=== PATIENT | female | born 1965 | race Caucasian/White ===

== ENCOUNTER 2017-06-27 10:24 | Emergency (ER) ==
[2017-06-27 10:30] VITALS: BP 131/84; TEMP 98.3; BMI 22.6
[2017-06-27 10:53] LABS: BILIRUBIN,URINE Negative (NEGATIVE); KETONES,URINE Negative (NEGATIVE); LEUKOCYTE ESTERASE ,URINE Negative (NEGATIVE); NITRITE,URINE Negative (NEGATIVE); PH,URINE 5.5 (5-9); PROTEIN,URINE Negative (NEGATIVE); URINE, BLOOD 2+ (NEGATIVE)
[2017-06-27 10:55] LABS: ADD URINE MICROSCOPIC YES
[2017-06-27 11:05] LABS: BACTERIA,URINE 2+ (NOT PRESENT)
[2017-06-27 11:06] LABS: COCAIN SCREEN,URINE NEGATIVE (NEGATIVE)
--- NOTE | 2017-06-27 11:29 | CT ---
EXAM: CT of the abdomen pelvis without contrast History: Lower back pain and abdominal pain. Comparison: CT lumbar spine 06/27/2017 Technique: Multiplanar CT images through the abdomen pelvis were obtained without the administration of IV contrast Findings: Lung bases are free of consolidation. No acute osseous abnormalities. Degenerative luna es of the lumbar spine. No renal stones and no hydronephrosis. The appendix is not dilated or inflamed. No focal liver or s plenic lesions. Status post cholecystectomy. No peripancreatic inflammation. Adrenal glands are un remarkable. No bowel obstruction. No free air. No ascites. Bladder is not well distended. Adnexa l structures appear appropriate for patient's age. Trace pelvic fluid. Impression: Trace nonspecific pelvic fluid. No acute intra-abdominal or pelvic process.
--- NOTE | 2017-06-27 11:33 | CT ---
EXAM: CT of the lumbar spine without contrast History: Lower back pain. Technique: Multiplanar CT images through the lumbar spine were obtained without the administration o f IV contrast Findings: No acute fracture or subluxation of the lumbar spine. Mild to moderate multilevel degenerat tammy disc space narrowing with endplate sclerosis and osteophyte formation. T12-L1: No significant disc bulge or central canal stenosis. No significant bony neural foraminal na rrowing. L1-L2: Small posterior disc osteophyte complex with no significant central canal stenosis. Moderate right and mild left bony neural foraminal narrowing secondary to ligamentous and facet hypertrophy. L2-L3: Posterior disc osteophyte complex mild to moderately narrowing the central canal. Moderate r ight and mild left bony neural foraminal narrowing secondary to ligamentous and facet hypertrophy. L3-L4: Posterior disc osteophyte complex moderately narrowing the central canal. Moderate to severe right and moderate left bony neural foraminal narrowing secondary to ligamentous and facet hypertrop hy. L4-L5: No significant disc bulge or central canal stenosis. Moderate to severe right and moderate l eft bony neural foraminal narrowing secondary to ligamentous and facet hypertrophy. L5-S1: Disc bulge effacing the anterior thecal sac. There is moderate to severe central canal steno sis. Moderate bilateral bony neural foraminal narrowing secondary to ligamentous and facet hypertrop hy. Impression: 1. No acute osseous abnormality of the lumbar spine. 2. Degenerative changes level by level analysis as detailed above. If symptoms persist, recommend f urther evaluation with lumbar spine MRI.
[2017-06-27] MEDS ORDERED: TORADOL IM STA (13:45)
[2017-06-27] MEDS ORDERED: NORFLEX IM STA (13:45)
--- NOTE | 2017-06-27 13:49 | ED.PDOC ---
General ED Provider: Dr. BALJINDER KELLY-ER Chief Complaint: Back Pain Stated Complaint: my back hurts--i have a bad back and arthritis in my back--i took my mothers xanax Time Seen by Physician: 10:30 Mode of Arrival: Wheelchair Information Source: Patient, Family Exam Limitations: No limitations Nursing and Triage Documentation Reviewed and Agree: Yes Musculoskeletal Complaint Exam - Back Pain Complaint/Exam Mechanism of Injury: Reports: No known trauma Onset/Duration: several houfrs Symptoms Are: Still present Timing: Constant Initial Severity: Mild Current Severity: Mild Location: Reports: Discrete Character: Reports: Dull, Aching, Spasmodic, Stiffness Aggravating: Reports: Movements, Lifting, Bending, Walking Alleviating: Reports: None Associated Signs and Symptoms: Denies: Swelling, Redness, Bruising, Fever, Weakness, Numbness, Tingling, Abdominal pain, Flank pain, Bladder incontinence, Bowel incontinence, Weight loss, Pain with weight bearing Related History: Reports: Previous back injury Focal Tenderness: Yes Paraspinal Muscle Tenderness: Yes Paraspinal Muscle Spasm: Yes Scoliosis: No Lordosis: No Kyphosis: No SLR Test: Right Negative, Left Negative Hip Motion Testing Pain: Right Negative, Left Negative Focal Weakness: Present: None Focal Sensory Loss: Present: None Gait: Present: Normal Differential Diagnoses: Arthritis, Renal Colic, Strain, Sprain Review of Systems - Review Of Systems Constitutional: Reports: No symptoms Eyes: Reports: No symptoms Ears, Nose, Mouth, Throat: Reports: No symptoms Respiratory: Reports: No symptoms Cardiac: Reports: No symptoms GI: Reports: No symptoms : Reports: No symptoms Musculoskeletal: Reports: Back pain Skin: Reports: No symptoms Neurological: Reports: No symptoms Endocrine: Reports: No symptoms Hematologic/Lymphatic: Reports: No symptoms All Other Systems: Reviewed and Negative Past Medical History - Past Medical History Previously Healthy: Yes Endocrine: Reports: Unknown Cardiovascular: Reports: Unknown Respiratory: Reports: Unknown Hematological: Reports: Unknown Gastrointestinal: Reports: Unknown Genitourinary: Reports: Unknown Neuro/Psych: Reports: Other Musculoskeletal: Reports: Back Pain Cancer: Reports: Unknown Last Menstrual Period: menopause - Surgical History General Surgical History: Reports: Unknown - Family History Family History: Reports: Unknown - Social History Smoking Status: Current every day smoker, Heavy tobacco smoker Alcohol Screening: Occasionally Lives: With family Physical Exam - Physical Exam Appearance: Well-appearing, No pain distress, Well-nourished Pain Distress: Mild Eyes: RANJIT, EOMI, Conjunctiva clear ENT: Ears normal, Nose normal, Oropharynx normal Neck: Supple Respiratory: Airway patent, Breath sounds clear, Breath sounds equal, Respirations nonlabored Cardiovascular: RRR, Pulses normal, No rub, No murmur GI/: Soft, Nontender, No masses, Bowel sounds normal, No Organomegaly Musculoskeletal: Normal strength, ROM intact, No edema, No calf tenderness Skin: Warm, Dry, Normal color Neurological: Sensation intact, Motor intact, Reflexes intact, Cranial nerves intact, Alert, Oriented Psychiatric: Affect appropriate, Mood appropriate Interpretation - Radiology Interpretation Radiology Interpretation By: Radiologist Radiology Results: Negative Exam Interpreted: CT Scan Critical Care Note - Critical Care Note Total Time (mins): 0 Course - Course Orders, Labs, Meds: Lab Review 06/27/17 06/27/17 10:40 10:40 Urine Color Yellow Urine Clarity Clear Urine pH 5.5 Ur Specific Geary 1.020 Urine Protein Negative Urine Glucose (UA) Negative Urine Ketones Negative Urine Blood 2+ Urine Nitrite Negative Urine Bilirubin Negative Urine Urobilinogen 0.2 Ur Leukocyte Esterase Negative Urine Microscopic RBC 5-10 Urine Microscopic WBC 2-5 Ur Squamous Epith Cells 10-20 Urine Bacteria 2+ Urine Mucus Trace Urine Opiates Screen Positive Ur Oxycodone Screen Negative Urine Methadone Screen Negative Ur Propoxyphene Screen Negative Ur Barbiturates Screen Negative U Tricyclic Antidepress Negative Ur Phencyclidine Scrn Negative Ur Amphetamine Screen Negative U Methamphetamines Scrn Negative U Benzodiazepines Scrn Positive Urine Cocaine Screen Negative U Cannabinoids Screen Negative Orders Category Date Time Status URINALYSIS C & S IF INDICATED Stat LAB 06/27/17 10:40 Completed URINE CULTURE Stat LAB 06/27/17 10:40 Received URINE DRUG SCREEN (RAPID FOR ED) [DRUG SCREEN, URINE, LAB 06/27/17 10:40 Completed RAPID] Stat Ketorolac Tromethamine [Toradol] MEDS 06/27/17 13:45 Discontinued 60 mg IM ONCE STA Orphenadrine Citrate [Norflex] MEDS 06/27/17 13:45 Discontinued 60 mg IM ONCE STA CT ABDOMEN/PELVIS WO CONTRAST Stat RADS 06/27/17 10:[address] LUMBAR SPINE W/O CONTRAST Stat RADS 06/27/17 10:37 Completed Medications Discontinued Medications Generic Name Dose Route Start Last Admin Trade Name Freq PRN Reason Stop Dose Admin Ketorolac Tromethamine 60 mg 06/27/17 13:45 Toradol IM 06/27/17 13:46 ONCE STA Orphenadrine Citrate 60 mg 06/27/17 13:45 Norflex IM 06/27/17 13:46 ONCE STA the patient was observed sleeping in the exam room from triage till about 1:45 pm Vital Signs: Temp Pulse Resp BP Pulse Ox 06/27/17 10:25 98.3 F 53 L 16 131/84 95 Departure - Departure Time of Disposition: 13:50 Disposition: HOME SELF-CARE Discharge Problem: Backache UTI (urinary tract infection) Qualifiers: Urinary tract infection type: site unspecified Hematuria presence: without hematuria Qualified Code(s): N39.0 - Urinary tract infection, site not specified Instructions: Chronic Back Pain (ED), Urinary Tract Infection in Women (ED) Condition: Good Pt referred to PMD for follow-up: Yes Additional Instructions: tylenol #3 q 6hrs prn pain #6--levaquin 500mg q daily #7--f/u with pcp this week for recheck urine Allergies/Adverse Reactions: Allergies No Known Allergies Allergy (Unverified 06/27/17 10:32) Home Medications: Ambulatory Orders Citalopram Hydrobromide [Citalopram HBr] 40 mg PO DAILY 06/27/17 Lisinopril/Hydrochlorothiazide [Lisinopril-Hctz 10-12.5 mg Tab] 1 each PO DAILY 06/27/17 Disposition Discussed With: Patient, Family
== END 2017-06-27 14:20 | disposition home or self-care (01) ==
LOC: ED 10:24
DX: N39.0 Urinary tract infection, site not specified (principal); M54.9 Dorsalgia, unspecified; F17.210 Nicotine dependence, cigarettes, uncomplicated
CPT/HCPCS: 80306; 81001; 87086; 96372; 99283